=== PATIENT | female | born 1950 | race Two or more races ===

== ENCOUNTER 2018-03-19 12:36 | Inpatient (IN) | payer OTHER, MEDICAID ==
[~2018-03-19] VITALS: Ht 147.3 cm; Wt 78.8 kg
[2018-03-19 14:04] LABS: Basophils # (auto) 0 uL; Eosinophils # (auto) 0.2 uL; Lymphocytes # (auto) 0.6 uL; Mean Corpuscular Hemoglobin 32.8 pg (28.0-32.0); Red Blood Cells 3.15 10^6/uL (4.0-5.20)
[2018-03-19 14:06] LABS: Basophils % (auto) 0.6 % (0.0-2.0); Eosinophils % (auto) 4.3 % (0.0-7.0); Hematocrit 30.9 % (36.0-46.0); Hemoglobin 10.3 g/dL (12.2-16.2); Lymphocytes % (auto) 13.8 % (10.0-50.0); Mean Corpuscular Hgb Conc. 33.5 g/dL (32.0-36.0); Mean Corpuscular Volume 97.9 fL (80.0-100.0); Monocytes # (auto) 0.3 uL; Monocytes % (auto) 7.4 % (0.0-12.0); Neutrophils # (auto) 3.4 uL; Neutrophils % (auto) 73.9 % (37.0-80.0); Platelet Count (auto) 38 10^3/uL (140-450); White Blood Cell 4.6 10^3/uL (4.4-10.8)
[2018-03-19 14:12] LABS: Red Cell Distribution Width 20.3 % (11.8-14.3)
[2018-03-19 14:22] LABS: INR 1.93 (0.9-1.15); Partial Thromboplastin Time 50.6 sec (23.78-33.04); Prothrombin Time 19.9 sec (9.27-12.13)
[2018-03-19 14:25] LABS: Albumin 2.9 g/dL (3.4-5.0); BUN/Creatinine Ratio 10.5; Calcium 8.5 mg/dL (8.5-10.1); Magnesium 1.9 mg/dL (1.6-2.6); Potassium 4.5 mmol/L (3.5-5.1)
[2018-03-19 14:30] LABS: Bilirubin, Total 6.1 mg/dL (0.2-1.0); Total Protein 6.7 g/dL (6.4-8.2)
[2018-03-19] MEDS ORDERED: cefTRIAXone 1GM/50ML D5W 50 ML IV ONE (14:30)
[2018-03-19] MEDS ORDERED: LACTULOSE 20Gm/30ML SOLN PO ONE (15:15)
[2018-03-19 16:15] LABS: Amylase 116 U/L (25-115); Lipase 752 U/L (73-393)
[2018-03-19] MEDS ORDERED: LACTULOSE 20Gm/30ML SOLN PO PRN (17:30)
[2018-03-19] MEDS ORDERED: PHYTONADIONE ORAL Susp 10 mg/10ml PO ONE (17:30)
[2018-03-19] MEDS ORDERED: LORazepam 0.5 MG TAB PO PRN (17:30)
[2018-03-19] MEDS ORDERED: TEMAZEPAM 15 MG CAP PO PRN (17:30)
[2018-03-19] MEDS ORDERED: PIPERACILLIN-TAZOB 2.25GM 50 ML IV ONE (17:30)
[2018-03-19] MEDS ORDERED: MORPHINE SULFATE 4 MG/ML SYR/VIAL IV PRN ×3 (17:30)
[2018-03-19] MEDS ORDERED: PANTOPRAZOLE 40 MG/10 ML VIAL IV ONE (17:30)
[2018-03-19] MEDS ORDERED: NITROGLYCERIN 0.4 MG SL TAB SL PRN (17:30)
[2018-03-19] MEDS ORDERED: ALBUTEROL SULF 2.5 MG/0.5ML(0.5%) NEB SOLN NEB PRN (17:30)
[2018-03-19] MEDS ORDERED: ONDANSETRON HCL 4 MG/2 ML VIAL IV PRN (17:30)
[2018-03-19] MEDS ORDERED: DEXTROSE (50%) 50ML SYRG IV PRN (17:30)
[2018-03-19] MEDS: SODIUM CHLORIDE 0.9% 1,000 ML IV SCH (18:02)
[2018-03-19] MEDS: glipiZIDE 5 MG TAB PO SCH (18:02)
[2018-03-19] MEDS: LACTULOSE 20Gm/30ML SOLN PO SCH ×2 (18:06→21:34)
[2018-03-19 18:45] VITALS: BP 115/61
[2018-03-19] MEDS: IPRATROPIUM BROM 0.5 MG/2.5ML INH SOL NEB SCH (19:24)
[2018-03-19] MEDS: ALBUTEROL SULF 2.5 MG/0.5ML(0.5%) NEB SOLN NEB SCH (19:24)
[2018-03-19 19:30] VITALS: BP 110/61
[2018-03-19] MEDS: ACCU-CHEK COMFORT CURVE STRIP VI SCH (20:00)
[2018-03-19] MEDS: InsuLIN REG 1unit/0.01ml Soln (100units/ml) SC SCH (21:32)
[2018-03-19] MEDS: CLINDAMYCIN 600MG IV 50 ML IV SCH (21:34)
[2018-03-19] MEDS: PROPRANOLOL HCL 20 MG TAB PO SCH (21:46)
[2018-03-19 22:00] VITALS: BP 110/61
[2018-03-19 23:45] VITALS: BP 115/61
[2018-03-20] VITALS (9 sets, daily range): BP systolic 95–128; BP diastolic 50–83
[2018-03-20] MEDS: PIPERACILLIN-TAZOB 2.25GM 50 ML IV SCH ×4 (00:26→18:00)
[2018-03-20] MEDS: ACCU-CHEK COMFORT CURVE STRIP VI SCH ×6 (00:27→18:56)
[2018-03-20] MEDS: ALBUTEROL SULF 2.5 MG/0.5ML(0.5%) NEB SOLN NEB SCH ×4 (00:27→19:20)
[2018-03-20] MEDS: IPRATROPIUM BROM 0.5 MG/2.5ML INH SOL NEB SCH ×4 (00:27→19:20)
[2018-03-20] MEDS: InsuLIN REG 1unit/0.01ml Soln (100units/ml) SC SCH ×5 (00:27→18:56)
[2018-03-20] MEDS ORDERED: GLIP-116 PO (00:51)
[2018-03-20] MEDS ORDERED: LACT10SO66 PO (00:51)
[2018-03-20] MEDS ORDERED: RIFA550T PO (00:51)
[2018-03-20] MEDS ORDERED: PROP80CA40 PO (00:51)
[2018-03-20] MEDS ORDERED: AMIO200T33 PO (00:51)
[2018-03-20] MEDS ORDERED: FOLI1TAB6 PO (00:51)
[2018-03-20] MEDS: LACTULOSE 20Gm/30ML SOLN PO SCH ×6 (02:00→22:03)
[2018-03-20] MEDS: SODIUM CHLORIDE 0.9% 1,000 ML IV SCH ×2 (03:22→14:29)
[2018-03-20] MEDS: CLINDAMYCIN 600MG IV 50 ML IV SCH ×3 (06:07→22:31)
[2018-03-20] MEDS: PROPRANOLOL HCL 20 MG TAB PO SCH ×3 (06:08→22:04)
[2018-03-20] MEDS: glipiZIDE 5 MG TAB PO SCH (06:08)
[2018-03-20 07:52] LABS: Basophils # (auto) 0 uL; Eosinophils # (auto) 0.3 uL; Mean Corpuscular Volume 98.7 fL (80.0-100.0); Platelet Count (auto) 47 10^3/uL (140-450)
[2018-03-20 07:53] LABS: Albumin 2.3 g/dL (3.4-5.0); BUN/Creatinine Ratio 10.7; Calcium 8.5 mg/dL (8.5-10.1); Potassium 4.2 mmol/L (3.5-5.1)
[2018-03-20 07:54] LABS: Basophils % (auto) 0.6 % (0.0-2.0); Hematocrit 26.8 % (36.0-46.0); Lymphocytes # (auto) 0.9 uL; Lymphocytes % (auto) 12.7 % (10.0-50.0); Mean Corpuscular Hemoglobin 33.2 pg (28.0-32.0); Mean Corpuscular Hgb Conc. 33.6 g/dL (32.0-36.0); Monocytes # (auto) 0.6 uL; Monocytes % (auto) 8.7 % (0.0-12.0); Neutrophils # (auto) 5.1 uL; Nucleated Red Blood Cells % 0.1 %; Red Blood Cells 2.71 10^6/uL (4.0-5.20); White Blood Cell 6.9 10^3/uL (4.4-10.8)
[2018-03-20 07:55] LABS: Red Cell Distribution Width 20.4 % (11.8-14.3)
[2018-03-20 07:58] LABS: Bilirubin, Total 4.3 mg/dL (0.2-1.0); Total Protein 5.8 g/dL (6.4-8.2)
[2018-03-20] MEDS ORDERED: PHYTONADIONE ORAL Susp 10 mg/10ml PO SCH (10:00)
[2018-03-20] MEDS: PANTOPRAZOLE 40 MG TAB PO SCH (11:10)
[2018-03-20] MEDS ORDERED: SODIUM CHLORIDE 0.9% 1,000 ML IV SCH (17:45)
[2018-03-20] MEDS ORDERED: FUROSEMIDE 20 MG/2 ML VIAL IV ONE (17:45)
[2018-03-20] MEDS ORDERED: DEXTROSE (50%) 50ML SYRG IV PRN (18:00)
[2018-03-20] MEDS: ALBUMIN 25% 100 ML IV SCH (21:58)
[2018-03-20] MEDS ORDERED: methylPREDNISolone SOD SUCC 40 MG/ML VL IV SCH (22:00)
[2018-03-21] MEDS: IPRATROPIUM BROM 0.5 MG/2.5ML INH SOL NEB SCH ×4 (00:32→18:46)
[2018-03-21] MEDS: ALBUTEROL SULF 2.5 MG/0.5ML(0.5%) NEB SOLN NEB SCH ×4 (00:32→18:46)
[2018-03-21] MEDS: ALBUMIN 25% 100 ML IV SCH ×2 (00:35→06:04)
[2018-03-21] MEDS: LACTULOSE 20Gm/30ML SOLN PO SCH ×6 (02:00→22:00)
[2018-03-21 04:52] VITALS: BP 104/57
[2018-03-21] MEDS: CLINDAMYCIN 600MG IV 50 ML IV SCH ×2 (05:51→13:50)
[2018-03-21] MEDS: PIPERACILLIN-TAZOB 2.25GM 50 ML IV SCH ×3 (05:51→12:00)
[2018-03-21] MEDS: ACCU-CHEK COMFORT CURVE STRIP VI SCH ×5 (05:57→23:28)
[2018-03-21] MEDS ORDERED: FUROSEMIDE 20 MG/2 ML VIAL IV ONE (06:00)
[2018-03-21] MEDS: InsuLIN REG 1unit/0.01ml Soln (100units/ml) SC SCH ×5 (06:00→23:28)
[2018-03-21 08:47] VITALS: BP 115/68
[2018-03-21] MEDS: PANTOPRAZOLE 40 MG TAB PO SCH (09:27)
[2018-03-21] MEDS: PROPRANOLOL HCL 20 MG TAB PO SCH ×2 (09:27→22:00)
[2018-03-21 12:48] VITALS: BP 106/55
[2018-03-21 15:30] LABS: BUN/Creatinine Ratio 9.5; Calcium 8.8 mg/dL (8.5-10.1); Potassium 4.2 mmol/L (3.5-5.1)
[2018-03-21] MEDS: LEVOFLOXACIN 250MG 50 ML IV SCH (16:19)
[2018-03-21 16:35] VITALS: BP 111/57
[2018-03-21 22:00] VITALS: BP 102/63
[2018-03-22] MEDS: ALBUTEROL SULF 2.5 MG/0.5ML(0.5%) NEB SOLN NEB SCH ×3 (00:58→12:25)
[2018-03-22] MEDS: IPRATROPIUM BROM 0.5 MG/2.5ML INH SOL NEB SCH ×3 (00:58→12:25)
[2018-03-22] MEDS: LACTULOSE 20Gm/30ML SOLN PO SCH ×3 (02:00→10:06)
[2018-03-22 05:00] VITALS: BP 106/59
[2018-03-22] MEDS: ACCU-CHEK COMFORT CURVE STRIP VI SCH ×2 (06:05→12:15)
[2018-03-22] MEDS: InsuLIN REG 1unit/0.01ml Soln (100units/ml) SC SCH ×2 (06:05→12:16)
[2018-03-22 06:49] LABS: Basophils # (auto) 0 uL; Eosinophils # (auto) 0.2 uL; Hematocrit 23.5 % (36.0-46.0); Lymphocytes # (auto) 0.5 uL; Mean Corpuscular Volume 99.7 fL (80.0-100.0); Monocytes # (auto) 0.3 uL; Neutrophils # (auto) 2.5 uL; Red Blood Cells 2.35 10^6/uL (4.0-5.20)
[2018-03-22 06:52] LABS: Basophils % (auto) 0.4 % (0.0-2.0); Eosinophils % (auto) 4.7 % (0.0-7.0); Hemoglobin 7.8 g/dL (12.2-16.2); Lymphocytes % (auto) 15.5 % (10.0-50.0); Mean Corpuscular Hemoglobin 33.1 pg (28.0-32.0); Mean Corpuscular Hgb Conc. 33.2 g/dL (32.0-36.0); Monocytes % (auto) 8.9 % (0.0-12.0); Neutrophils % (auto) 70.5 % (37.0-80.0); Nucleated Red Blood Cells % 0.1 %; Platelet Count (auto) 26 10^3/uL (140-450); White Blood Cell 3.5 10^3/uL (4.4-10.8)
[2018-03-22 07:01] LABS: Red Cell Distribution Width 21.2 % (11.8-14.3)
[2018-03-22 07:04] LABS: Potassium 4.2 mmol/L (3.5-5.1)
[2018-03-22 07:09] LABS: Calcium 8.9 mg/dL (8.5-10.1)
[2018-03-22 09:00] VITALS: BP 97/61
[2018-03-22] MEDS ORDERED: LEVO250T19 PO (09:05)
[2018-03-22] MEDS ORDERED: PRO20T PO (09:05)
[2018-03-22] MEDS ORDERED: PANT40T PO (09:05)
[2018-03-22] MEDS: PANTOPRAZOLE 40 MG TAB PO SCH (10:05)
[2018-03-22] MEDS: PROPRANOLOL HCL 20 MG TAB PO SCH (10:06)
[2018-03-22] MEDS: LEVOFLOXACIN 250MG 50 ML IV SCH (10:07)
[2018-03-22 12:00] VITALS: BP 116/59
== END 2018-03-22 13:15 | disposition hospice, home (50) | DRG 441 ==
LOC: ER 12:45 → TELE 17:43 → TELE-EAST 19:08
PROVIDERS: ADMIT Internal Medicine; ATTEND Internal Medicine
PROC: 30233R1 Transfusion of Nonautologous Platelets into Peripheral Vein, Percutaneous Approach (ICD-10-PCS; principal; 2018-03-20)
DX: K72.90 Hepatic failure, unspecified without coma (principal); K85.90 Acute pancreatitis without necrosis or infection, unspecified; N17.0 Acute kidney failure with tubular necrosis; E43 Unspecified severe protein-calorie malnutrition; J15.6 Pneumonia due to other Gram-negative bacteria; D68.9 Coagulation defect, unspecified; J44.1 Chronic obstructive pulmonary disease with (acute) exacerbation; N18.4 Chronic kidney disease, stage 4 (severe); J44.0 Chronic obstructive pulmonary disease with (acute) lower respiratory infection; K70.31 Alcoholic cirrhosis of liver with ascites; D69.6 Thrombocytopenia, unspecified; E11.22 Type 2 diabetes mellitus with diabetic chronic kidney disease; I12.9 Hypertensive chronic kidney disease with stage 1 through stage 4 chronic kidney disease, or unspecified chronic kidney disease; R58 Hemorrhage, not elsewhere classified; E11.65 Type 2 diabetes mellitus with hyperglycemia; J32.9 Chronic sinusitis, unspecified; E66.9 Obesity, unspecified; E11.21 Type 2 diabetes mellitus with diabetic nephropathy; D63.8 Anemia in other chronic diseases classified elsewhere; H11.32 Conjunctival hemorrhage, left eye; I48.91 Unspecified atrial fibrillation; K21.9 Gastro-esophageal reflux disease without esophagitis; S10.93XA Contusion of unspecified part of neck, initial encounter; X58.XXXA Exposure to other specified factors, initial encounter; Y93.89 Activity, other specified; Y92.89 Other specified places as the place of occurrence of the external cause; I25.2 Old myocardial infarction; Y99.8 Other external cause status; Z82.49 Family history of ischemic heart disease and other diseases of the circulatory system; Z90.710 Acquired absence of both cervix and uterus; Z88.5 Allergy status to narcotic agent; Z68.36 Body mass index [BMI] 36.0-36.9, adult
CPT/HCPCS: 36415; 70360; 70490; 71045; 71046; 80048; 80053; 82140; 82150; 82550; 82962; 83036; 83605; 83690; 83735; 84443; 84484; 85025; 85610; 85730; 86850; 86900; 86901; 87040; 87077; 87081; 87186; 87493; 93005; 93306; 93971; 94640; 94761; 96374; 96375; A6257; C9113; G0378; J0696; J1815; J2543; J3490; P9047